=== PATIENT | male | born 1995 | race Caucasian/White ===

== ENCOUNTER 2016-09-01 21:22 | Inpatient (IN) | payer MEDICAID ==
[~2016-09-01] VITALS: Ht 170.2 cm; Wt 65.1 kg
[~2016-09-01 21:22] MED LIST: ASPI-496 PO; AZIT-14 PO; BENZ100C PO; DIGO250T PO; LEVA15HF2 PO; LISI5TAB7 PO; VERA120T5 PO
[2016-09-01] MEDS ORDERED: SODIUM CHLORIDE 0.9% 1,000 ML IV ONE (21:47)
[2016-09-01] MEDS ORDERED: SODIUM CHLORIDE 0.9% 1,000ML IVBOLUS ONE (22:00)
[2016-09-01] MEDS ORDERED: SODIUM CHLORIDE FLUSH 10ML SYR IVF ONE (22:00)
[2016-09-01] MEDS ORDERED: ALBUTEROL/IPRATROPIUM 2.5MG/0.5MG, 3 ML NPPB ONE (22:00)
[2016-09-01] MEDS ORDERED: ALBUTEROL/IPRATROPIUM 2.5MG/0.5MG, 3 ML ONE (22:08)
[2016-09-01 22:10] LABS: RAPID INFLUENZA A Negative (Negative); RAPID INFLUENZA B Negative (Negative)
[2016-09-01 22:27] LABS: BLOOD UREA NITROGEN 11 mg/dL (7-18)
[2016-09-01 22:31] LABS: IS PT STATUS REG ER OR PRE ER? YES
[2016-09-01] MEDS ORDERED: CEFTRIAXONE PMX 1GM/50ML 50 ML IV ONE (23:00)
[2016-09-01] MEDS ORDERED: AZITHROMYCIN 500 MG in SODIUM CHLORIDE 0.9% 250 ML IV ONE (23:00)
[2016-09-01] MEDS ORDERED: CEFTRIAXONE PMX 1GM/50ML 50 ML ONE (23:12)
[2016-09-01] MEDS ORDERED: DIGO250T PO (23:22)
[2016-09-01] MEDS ORDERED: MULT-658 PO (23:23)
[2016-09-02] MEDS: CEFTRIAXONE PMX 1GM/50ML 50 ML IV SCH
[2016-09-02] MEDS: AZITHROMYCIN 500 MG in SODIUM CHLORIDE 0.9% 250 ML IV SCH
[2016-09-02] MEDS ORDERED: ONDANSETRON 2MG/ML, 2ML IVP PRN
[2016-09-02] MEDS ORDERED: POLYETHYLENE GLYCOL 17 GM PACKET PO PRN
[2016-09-02] MEDS ORDERED: ACETAMINOPHEN 325 MG TABLET PO PRN
[2016-09-02] MEDS ORDERED: BISACODYL 10 MG SUPP PR PRN
[2016-09-02] MEDS ORDERED: GUAIFENESIN/DM 200-20MG, 10ML UDC PO PRN
[2016-09-02 01:07] VITALS: BP 112/69
[2016-09-02] MEDS: HEPARIN 5,000 UNITS/ML, 1ML SQ SCH ×4 (03:03→16:00)
[2016-09-02] MEDS: DIGOXIN 0.25 MG TABLET PO SCH ×2 (03:04→20:34)
[2016-09-02] MEDS: VERAPAMIL 120MG TABLET PO SCH ×2 (03:04→20:33)
[2016-09-02 03:32] VITALS: BP 107/67
[2016-09-02 06:10] LABS: HEMOGLOBIN 16.1 g/dL (13.7-18.0)
[2016-09-02 06:19] LABS: ASPARTATE AMINO TRANSFERASE 31 U/L (15-37); BLOOD UREA NITROGEN 13 mg/dL (7-18)
[2016-09-02] MEDS: SENNA/DOCUSATE TABLET PO SCH (09:00)
[2016-09-02] MEDS ORDERED: VERAPAMIL 120MG TABLET PO SCH (09:00)
[2016-09-02] MEDS ORDERED: DIGOXIN 0.25 MG TABLET PO SCH (09:00)
[2016-09-02] MEDS: ASPIRIN 81 MG TABLET EC PO SCH (09:20)
[2016-09-02] MEDS: SODIUM CHLORIDE FLUSH 10ML SYR IVF SCH ×2 (09:21→20:35)
[2016-09-02] MEDS: LORATADINE 10 MG TABLET PO SCH (09:21)
[2016-09-02] MEDS: MULTIVITAMIN 1 TABLET PO SCH (09:21)
[2016-09-02 09:50] VITALS: BP 110/70
[2016-09-02 14:47] VITALS: BP 128/73
[2016-09-02 18:37] VITALS: BP 123/71
[2016-09-03] MEDS: CEFTRIAXONE PMX 1GM/50ML 50 ML IV SCH (00:38)
[2016-09-03] MEDS: AZITHROMYCIN 500 MG in SODIUM CHLORIDE 0.9% 250 ML IV SCH (01:35)
[2016-09-03 01:51] VITALS: BP 120/62
[2016-09-03] MEDS: DIGOXIN 0.25 MG TABLET PO SCH (03:14)
[2016-09-03] MEDS: VERAPAMIL 120MG TABLET PO SCH (03:14)
[2016-09-03] MEDS ORDERED: AZIT-14 PO (07:27)
[2016-09-03] MEDS: HEPARIN 5,000 UNITS/ML, 1ML SQ SCH ×2 (08:00)
[2016-09-03] MEDS: SENNA/DOCUSATE TABLET PO SCH (08:05)
[2016-09-03] MEDS: SODIUM CHLORIDE FLUSH 10ML SYR IVF SCH (08:05)
[2016-09-03] MEDS: ASPIRIN 81 MG TABLET EC PO SCH (08:05)
[2016-09-03] MEDS: LORATADINE 10 MG TABLET PO SCH (08:05)
[2016-09-03] MEDS: MULTIVITAMIN 1 TABLET PO SCH (08:05)
[2016-09-03 08:39] VITALS: BP 115/72
[2016-09-03 12:48] VITALS: BP 142/77
== END 2016-09-03 13:10 | disposition home or self-care (01) | DRG 189 ==
LOC: ED 23:03 → EDIP 23:04 → ED 23:13 → 4EST 09-02 01:01
DX: J96.01 Acute respiratory failure with hypoxia (principal); Q23.4 Hypoplastic left heart syndrome; Q60.0 Renal agenesis, unilateral; J20.9 Acute bronchitis, unspecified; D75.89 Other specified diseases of blood and blood-forming organs; Z95.5 Presence of coronary angioplasty implant and graft; H66.002 Acute suppurative otitis media without spontaneous rupture of ear drum, left ear; J45.909 Unspecified asthma, uncomplicated; Z87.01 Personal history of pneumonia (recurrent); Z88.5 Allergy status to narcotic agent
CPT/HCPCS: 36415; 71010; 80048; 80053; 80162; 82040; 82607; 82746; 83605; 83880; 84484; 85025; 87040; 87070; 87205; 87400; 93005; 94640; 96365; 96367; J0456; J0696; J1644; J7620; J7030; J7050; J7512

== ENCOUNTER 2017-07-12 09:37 | Emergency (ER) | payer MEDICAID ==
[~2017-07-12] VITALS: Ht 170.2 cm; Wt 62.0 kg
[~2017-07-12 09:37] MED LIST changes: -AZIT-14 PO; +AZIT250T89 PO; -LEVA15HF2 PO; +LEVA15HF4 PO; +MULT-658 PO
[2017-07-12 10:29] LABS: BASOPHILS # (AUTO) 0.03 x10^3/uL (0-0.1); BASOPHILS % (AUTO) 1 % (0-1); EOSINOPHILS # (AUTO) 0.28 x10^3/uL (0-0.4); EOSINOPHILS % (AUTO) 4 % (1-7); LYMPHOCYTES % (AUTO) 6 % (22-44); MD NO; MEAN CORPUSCULAR HGB CONC 33.7 g/dL (33.2-36.2); MEAN CORPUSCULAR VOLUME 100.8 fL (81-97); MEAN PLATELET VOLUME 9.3 fL (7.4-10.4); MONOCYTES # (AUTO) 0.57 x10^3/uL (0.2-0.8); MONOCYTES % (AUTO) 9 % (2-9); NEUTROPHILS # (AUTO) 5.41 x10^3/uL (1.8-6.8); NEUTROPHILS % (AUTO) 81 % (42-75); PLATELET COUNT 154 x10^3/uL (130-400); RED BLOOD COUNT 4.84 x10^6/uL (4.38-5.82); RED CELL DISTRIBUTION WIDTH 12.8 % (9.4-14.8)
[2017-07-12] MEDS ORDERED: ACETAMINOPHEN 500 MG TABLET PO ONE (10:30)
[2017-07-12] MEDS ORDERED: ONDANSETRON 2MG/ML, 2ML IVPush ONE (10:30)
[2017-07-12] MEDS ORDERED: ALBUTEROL/IPRATROPIUM 2.5MG/0.5MG, 3 ML NPPB ONE (10:30)
[2017-07-12] MEDS ORDERED: SODIUM CHLORIDE 0.9% 1,000ML IVBOLUS ONE (10:30)
[2017-07-12] MEDS ORDERED: ALBUTEROL/IPRATROPIUM 2.5MG/0.5MG, 3 ML ONE (10:33)
[2017-07-12 10:41] LABS: ALBUMIN 3.9 g/dL (3.4-5.0); ANION GAP 6 mmol/L (5-15); CALCIUM 8.4 mg/dL (8.5-10.1); CHLORIDE 106 mmol/L (98-107); CREATININE 0.99 mg/dL (0.7-1.3)
[2017-07-12] MEDS ORDERED: ACETAMINOPHEN 500 MG TABLET ONE (10:56)
[2017-07-12] MEDS ORDERED: ONDANSETRON 2MG/ML, 2ML ONE (10:56)
[2017-07-12] MEDS ORDERED: ALBUTEROL SULFATE 2.5 MG/3 ML NPPB ONE (11:30)
[2017-07-12 11:54] LABS: RAPID INFLUENZA A Negative (Negative); RAPID INFLUENZA B Negative (Negative)
[2017-07-12 13:37] VITALS: BP 108/54
== END 2017-07-12 13:40 | disposition home or self-care (01) ==
LOC: ED 11:28
DX: J20.8 Acute bronchitis due to other specified organisms (principal)
CPT/HCPCS: 36415; 71046; 80048; 82040; 85025; 87400; 94640; 96374; 99285; J2405; J7030; J7613; J7620

== ENCOUNTER 2017-08-25 17:37 | Emergency (ER) | payer MEDICAID ==
[~2017-08-25] VITALS: Ht 170.2 cm; Wt 61.5 kg
[2017-08-25] MEDS ORDERED: ALBUTEROL/IPRATROPIUM 2.5MG/0.5MG, 3 ML NPPB ONE (18:00)
[2017-08-25] MEDS ORDERED: ALBUTEROL/IPRATROPIUM 2.5MG/0.5MG, 3 ML ONE (18:08)
[2017-08-25 19:36] VITALS: BP 109/69
== END 2017-08-25 19:39 | disposition home or self-care (01) ==
LOC: ED 18:30
DX: J98.01 Acute bronchospasm (principal); J06.9 Acute upper respiratory infection, unspecified
CPT/HCPCS: 71046; 94640; 99284; J7512; J7620

== ENCOUNTER 2018-02-21 22:39 | Emergency (ER) | payer MEDICAID ==
[~2018-02-21] VITALS: Ht 170.2 cm; Wt 66.4 kg
[2018-02-21 22:42] VITALS: BP 121/69
[2018-02-22] MEDS ORDERED: IBUPROFEN 200 MG TABLET PO ONE
[2018-02-22] MEDS ORDERED: IBUPROFEN 200 MG TABLET ONE (00:17)
== END 2018-02-22 00:23 | disposition home or self-care (01) ==
LOC: ED 23:59
DX: G89.11 Acute pain due to trauma (principal); M25.561 Pain in right knee; Z95.0 Presence of cardiac pacemaker; Z88.6 Allergy status to analgesic agent; X50.1XXA Overexertion from prolonged static or awkward postures, initial encounter; Y93.89 Activity, other specified; Y92.009 Unspecified place in unspecified non-institutional (private) residence as the place of occurrence of the external cause; Y99.8 Other external cause status
CPT/HCPCS: 99284

== ENCOUNTER 2018-07-31 20:23 | Emergency (ER) | payer MEDICAID ==
[~2018-07-31] VITALS: Ht 170.2 cm; Wt 65.0 kg
--- NOTE | 2018-07-31 20:46 | NUR ---
PT REPORTS "FEELING BAD" PT REPORTS FLU LIKE SYMPTOMS X LAST WEEK. PER TRIAGE NOTE
[2018-07-31] MEDS ORDERED: ACETAMINOPHEN 500 MG TABLET ONE (21:09)
[2018-07-31 21:30] LABS: BASOPHILS # (AUTO) 0.02 x10^3/uL (0-0.1); BASOPHILS % (AUTO) 0 % (0-1); EOSINOPHILS # (AUTO) 0.02 x10^3/uL (0-0.4); EOSINOPHILS % (AUTO) 0 % (1-7); LYMPHOCYTES # (AUTO) 0.65 x10^3/uL (1-3.4); LYMPHOCYTES % (AUTO) 12 % (22-44); MD NO; MEAN CORPUSCULAR HEMOGLOBIN 33.9 pg (27.5-34.5); MEAN CORPUSCULAR HGB CONC 34.3 g/dL (33.2-36.2); MEAN CORPUSCULAR VOLUME 98.8 fL (81-97); MEAN PLATELET VOLUME 9.6 fL (7.4-10.4); MONOCYTES # (AUTO) 0.67 x10^3/uL (0.2-0.8); MONOCYTES % (AUTO) 12 % (2-9); NEUTROPHILS # (AUTO) 4.13 x10^3/uL (1.8-6.8); NEUTROPHILS % (AUTO) 75 % (42-75); PLATELET COUNT 113 x10^3/uL (130-400); RED BLOOD COUNT 4.92 x10^6/uL (4.38-5.82); RED CELL DISTRIBUTION WIDTH 12.9 % (9.4-14.8)
[2018-07-31] MEDS ORDERED: ACETAMINOPHEN 325 MG TABLET PO ONE (21:30)
[2018-07-31] MEDS ORDERED: ACETAMINOPHEN 500 MG TABLET PO ONE (21:30)
[2018-07-31 21:35] LABS: RAPID INFLUENZA A Negative (Negative); RAPID INFLUENZA B Negative (Negative)
[2018-07-31 21:43] LABS: ALANINE AMINOTRANSFERASE 27 U/L (12-78); ALBUMIN 4.7 g/dL (3.4-5.0); ANION GAP 7 mmol/L (5-15); CALCIUM 9.2 mg/dL (8.5-10.1); CHLORIDE 104 mmol/L (98-107); CREATININE 1.24 mg/dL (0.7-1.3)
[2018-07-31 21:45] LABS: ALKALINE PHOSPHATASE 125 U/L (45-117); BILIRUBIN,TOTAL 2.1 mg/dL (0.2-1.0); TOTAL PROTEIN 8.5 g/dL (6.4-8.2)
--- NOTE | 2018-07-31 21:48 | NUR ---
flu neg but strep pos for now given tyrenol
[2018-07-31] MEDS ORDERED: AMOXICILLIN/CLAV 875-125MG TABLET PO ONE (22:30)
[2018-07-31] MEDS ORDERED: AMOXICILLIN/CLAV 875-125MG TABLET ONE (22:34)
--- NOTE | 2018-07-31 22:40 | NUR ---
pt stated " i had augmentin before no reaction i need to go cause my ride will be here soon i cant wait for next hour " notified to dr vargas pt is ok to be dc'd even though as soon as pt took augmentin took this rn doesnt need to check vss pt will be ok'd to be dc'd
[2018-07-31 22:42] VITALS: BP 110/51
== END 2018-07-31 22:44 | disposition home or self-care (01) ==
LOC: ED 22:25
DX: J02.0 Streptococcal pharyngitis (principal); R50.9 Fever, unspecified
CPT/HCPCS: 36415; 71045; 80053; 83605; 85025; 87040; 87400; 87880; 99284